=== PATIENT | male | born 1950 | race Caucasian/White ===

== ENCOUNTER 2018-05-20 09:43 | Day surgery (SDC) | payer MEDICARE ==
[~2018-05-20] VITALS: Ht 195.6 cm; Wt 81.8 kg
[2018-05-20 10:36] VITALS: BP 129/87
[2018-05-20] MEDS ORDERED: OMEG1CAP23 PO (10:59)
[2018-05-20] MEDS ORDERED: ASPI-496 PO (10:59)
[2018-05-20] MEDS ORDERED: VIT1TABL32 PO (10:59)
[2018-05-20] MEDS ORDERED: GLUC-88 PO (10:59)
[2018-05-20] MEDS ORDERED: SAW/1TAB2 PO (10:59)
[2018-05-20] MEDS ORDERED: BIVALIRUDIN 250 MG ONE (14:10)
[2018-05-20] MEDS ORDERED: VERAPAMIL 2.5 MG/ML, 2ML ONE (14:10)
[2018-05-20] MEDS ORDERED: HEPARIN 1,000 UNITS/ML, 10ML ONE (14:10)
[2018-05-20] MEDS ORDERED: FENTANYL PF 100 MCG/2ML ONE (14:10)
[2018-05-20] MEDS ORDERED: LIDOCAINE-MPF 1%, 5ML ONE (14:10)
[2018-05-20] MEDS ORDERED: MIDAZOLAM 1 MG/ML, 5ML ONE (14:10)
[2018-05-20] MEDS ORDERED: TICAGRELOR 90 MG TABLET ONE (14:11)
[2018-05-20] MEDS ORDERED: SODIUM CHLORIDE 0.9% 1,000 ML IV SCH (14:48)
== END 2018-05-20 17:00 | disposition home or self-care (01) ==
LOC: CACL 09:43
PROVIDERS: ATTEND Internal Medicine Cardiovascular Disease
DX: R07.89 Other chest pain (principal)
CPT/HCPCS: 93458; 99156; C1769; C1894; J1644; J2250; J3010; Q9967; J0583